=== PATIENT | male | born 1995 | race Two or more races ===

== ENCOUNTER 2019-12-04 12:43 | Emergency (ER) | payer OTHER ==
[~2019-12-04] VITALS: Ht 170.2 cm; Wt 72.6 kg
[2019-12-04] MEDS ORDERED: GENVOYA TABLET1 EACH (13:10)
[2019-12-05] MEDS ORDERED: PERCOCET 5-3251 EACH PO ×2 (10:30)
[2019-12-05] MEDS ORDERED: DICLOFENAC POTA50 MG PO ×2 (10:30)
== END 2019-12-04 14:18 | disposition home or self-care (01) ==
LOC: ER 12:43
DX: M12.572 Traumatic arthropathy, left ankle and foot (principal); S93.492S Sprain of other ligament of left ankle, sequela; X58.XXXS Exposure to other specified factors, sequela

== ENCOUNTER 2019-12-04 23:23 | Emergency (ER) | payer OTHER ==
[~2019-12-04] VITALS: Ht 170.2 cm; Wt 72.6 kg
[~2019-12-04 23:23] MED LIST: GENVOYA TABLET1 EACH
[2019-12-05] MEDS ORDERED: DICLOFENAC POTA50 MG PO ×2 (10:30)
[2019-12-05] MEDS ORDERED: PERCOCET 5-3251 EACH PO ×2 (10:30)
== END 2019-12-05 11:44 | disposition home or self-care (01) ==
LOC: ER 23:23
DX: M12.572 Traumatic arthropathy, left ankle and foot (principal); R50.9 Fever, unspecified; M25.472 Effusion, left ankle